=== PATIENT | female | born 1950 | race Caucasian/White ===

== ENCOUNTER → 2021-08-12 | Outpatient (CLI) | payer MEDICARE ==
[~2021-08-12] MED LIST: LIPITOR 40MG TA40 MG PO; NORCO 325 MG-51 TAB PO; PRINIVIL10 MG PO
== END | disposition still patient (30) ==
LOC: ZCOL.LAB 18:00
DX: L03.311 Cellulitis of abdominal wall (principal); Z90.49 Acquired absence of other specified parts of digestive tract

== ENCOUNTER 2021-09-16 10:49 | Day surgery (SDC) | payer MEDICARE, MEDICAID ==
[~2021-09-16] VITALS: Ht 134.6 cm; Wt 57.0 kg
[2021-09-16] MEDS ORDERED: PRIL40 PO (11:40)
[2021-09-16 12:01] VITALS: BP 144/55; PULSE 91; TEMP 97.6
[2021-09-16 13:45] VITALS: BP 135/66; PULSE 84; TEMP 97.3
[2021-09-16] MEDS ORDERED: NORCO 325 MG-51 TAB PO (13:52)
--- NOTE | 2021-09-16 13:59 | NUR ---
1345 - PT arrives from [place], drowsy but oriented. Monitors applied and vitals obtained; side rails x2 and non-slip socks remain. PT oriented to room and call castanon, within reach. Son remains present. PT denies pain and nausea. NO vomiting. Verbal room report obtained from [employer] and [employer]. PT then provided with buttered toast w/ hot coffee and ice water; cream and sugar on the side per request. Will monitor per intervals. Dressing is dry and intact; no drainage noted.
[2021-09-16 14:00] VITALS: BP 138/66; PULSE 82
--- NOTE | 2021-09-16 14:10 | NUR ---
1400 - VSS. PT continues to deny pain and nausea; PT has finished snack and drink. PT expressed desire to be discharged. Call castanon remains within reach. has finished speaking with PT and Son.
[2021-09-16 14:15] VITALS: BP 143/64; PULSE 81
--- NOTE | 2021-09-16 14:34 | NUR ---
1415 - Vitals obtained. DC instructions and educational material reveiwed with the PT and her son; both verbalized understanding and signed the related paperwork. Questions answered to PT satisfaction. PT assisted to bedside, however, refused RN assistance changing into personal clothes. IV discontinued. Catheter tip intact. Pressure bandaga applied, no redness or swelling noted. Call castanon remains within reach if needed.
--- NOTE | 2021-09-16 14:35 | NUR ---
PT dismissed from [facility] via wheelchair to the PT entrence by Chastity TOLENTINO; PT transferred into the care of her son, who is driving private car. PT has personal belongings and DC packet in hand w/ port-a-cath packet.
== END 2021-09-16 14:45 | disposition home or self-care (01) ==
LOC: SDCO 10:49
DX: C18.9 Malignant neoplasm of colon, unspecified (principal); L03.311 Cellulitis of abdominal wall; Z87.891 Personal history of nicotine dependence
CPT/HCPCS: C1788; J0690; J1644; J2704; J3010

== ENCOUNTER 2022-01-02 06:23 | Outpatient (CLI) | payer MEDICARE, MEDICAID ==
--- NOTE | 2021-12-30 09:20 | NUR ---
spoke to son. i gave him the instructions. told son to have her only take heart meds and bring a list of her meds.
[2022-01-02] VITALS (20 sets, daily range): BP systolic 150–180; BP diastolic 76–139; PULSE 86–105; TEMP 97.8
[~2022-01-02] VITALS: Ht 134.6 cm; Wt 54.3 kg
[~2022-01-02 06:23] MED LIST changes: +ELIQUIS 5MG PO; +PRIL40 PO
[2022-01-02] MEDS ORDERED: PRIL40 PO (07:07)
[2022-01-02] MEDS ORDERED: K-DUR 10 MEQ T10 MEQ PO (07:07)
[2022-01-02] MEDS ORDERED: ZESTRIL 10MG10 MG PO (07:08)
[2022-01-02] MEDS ORDERED: ALL DAY ALLERGY10 M3 PO (07:08)
[2022-01-02] MEDS ORDERED: AMOXICILLIN 50500 MG PO (07:11)
--- NOTE | 2022-01-02 12:29 | NUR ---
Dc instructions reviewed with pt and son, both express understanding. IV site wrapped with coban. Pt was given tylenol prior to departing due to c/o discomfort to jaw due to positioning she was laying on jaw during bx. Bandaid remains clean, dry and intact at time of discharge. Respirations even and unlabored. Pt is steady on feet. She tolerated PO fluids without issue. She is assisted out to son's car by wheelchair.
== END 2022-01-02 12:30 | disposition home or self-care (01) ==
LOC: COL.RAD 06:23
DX: R91.8 Other nonspecific abnormal finding of lung field (principal)
CPT/HCPCS: J2250; J3010

== ENCOUNTER → 2022-06-13 | Outpatient (CLI) | payer MEDICARE, MEDICAID ==
[~2022-06-13] MED LIST changes: +ALL DAY ALLERGY10 M3 PO; +AMOXICILLIN 50500 MG PO; +K-DUR 10 MEQ T10 MEQ PO; +ZESTRIL 10MG10 MG PO
== END ==
LOC: COL.RAD 08:42
DX: C18.7 Malignant neoplasm of sigmoid colon (principal); J34.89 Other specified disorders of nose and nasal sinuses; R91.1 Solitary pulmonary nodule
CPT/HCPCS: Q9967

== ENCOUNTER → 2023-08-25 | Outpatient (CLI) | payer MEDICARE, OTHER ==
[~2023-08-25] MED LIST changes: +Iohexol 300 - 100 ML VIAL IV ONE; +NS 100 ML IV SCH
== END ==
LOC: COL.RAD 08-12 05:20
DX: R91.1 Solitary pulmonary nodule (principal); R59.0 Localized enlarged lymph nodes; C18.7 Malignant neoplasm of sigmoid colon
CPT/HCPCS: Q9967